=== PATIENT | female | born 1980 | race Caucasian/White ===

== ENCOUNTER 2023-07-10 03:05 | Emergency (ER) | payer BC ==
[~2023-07-10] VITALS: Ht 152.4 cm; Wt 118.2 kg
[2023-07-10] MEDS ORDERED: LEXA1TAB2 PO (03:24)
[2023-07-10] MEDS ORDERED: ADENOSINE 6MG 2ML INJECTION IV STA ×2 (03:24→03:40)
[2023-07-10] MEDS ORDERED: LEVO125T4 PO (03:24)
[2023-07-10] MEDS ORDERED: PROP20TA72 PO (03:24)
[2023-07-10 04:17] LABS: BASO # 0.1 10^3/uL (0.0-0.2); BASO % 0.9 % (0.0-1.0); EOS # 0.1 10^3/uL (0.0-0.5); HEMATOCRIT 42.4 % (36.0-47.0); HEMOGLOBIN 14.6 g/dl (12.0-15.5); LYMPH # 3.4 10^3/uL (1.5-5.0); LYMPH % 24.7 % (24.0-44.0); MEAN CORPUSCULAR HEMOGLOBIN 29.9 pg (27.0-33.0); MEAN CORPUSCULAR HGB CONC 34.4 g/dl (32.0-36.5); MEAN CORPUSCULAR VOLUME 86.9 fl (80.0-96.0); MONO # 1.2 10^3/uL (0.0-0.8); MONO % 8.9 % (2.0-8.0); NEUTROPHILS # 8.8 10^3/uL (1.5-8.5); NEUTROPHILS % 64.1 % (36.0-66.0); PLATELET COUNT, AUTOMATED 463 10^3/uL (150-450); RED BLOOD COUNT 4.88 10^6/uL (4.00-5.40); WHITE BLOOD COUNT 13.8 10^3/uL (4.0-10.0)
[2023-07-10 04:39] LABS: BLOOD UREA NITROGEN 15 MG/DL (9-23); CALCIUM LEVEL 8.7 MG/DL (8.5-10.1); CARBON DIOXIDE LEVEL 22 MMOL/L (20-31); CHLORIDE LEVEL 104 MMOL/L (98-107); CK-MB VALUE MASS 2.4 NG/ML (<3.6); CREATININE FOR GFR 0.81 MG/DL (0.55-1.30); GLOMERULAR FILTRATION RATE > 60.0 (>58); GLUCOSE, FASTING 192 MG/DL (60-100); POTASSIUM SERUM 3.7 MMOL/L (3.5-5.1); SODIUM LEVEL 136 MMOL/L (136-145)
[2023-07-10 04:42] LABS: CPK CREATINE PHOSPHOKINASE 424 U/L (34-145); MB/CK RELATIVE INDEX 0.56 (< OR =4); THYROID STIMULATING HORMONE 8.255 uIU/ML (0.55-4.78)
[2023-07-10 06:14] LABS: CK-MB VALUE MASS 2.4 NG/ML (<3.6)
[2023-07-10 06:15] VITALS: O2SAT 94
[2023-07-10 06:17] LABS: MB/CK RELATIVE INDEX 0.65 (< OR =4)
[2023-07-10 06:26] VITALS: BP 111/63; TEMP 97
== END 2023-07-10 06:41 | disposition home or self-care (01) ==
LOC: M ED 03:05
DX: I47.10 Supraventricular tachycardia, unspecified (principal); I42.2 Other hypertrophic cardiomyopathy; E03.9 Hypothyroidism, unspecified; F12.90 Cannabis use, unspecified, uncomplicated; Z88.8 Allergy status to other drugs, medicaments and biological substances; Z79.899 Other long term (current) drug therapy
CPT/HCPCS: 71045; 80048; 82550; 82553; 83880; 84439; 84443; 84484; 85025; 93005; 93041; 94760; 96374; 99291; J0153